=== PATIENT | male | born 1960 | race Caucasian/White ===

== ENCOUNTER 2023-05-15 18:43 | Emergency (ER) | payer BC, SELFPAY ==
[2023-05-15 18:49] VITALS: BP 152/92
[2023-05-15 20:51] VITALS: BP 135/78
[2023-05-15 20:53] LABS: Hematocrit 40.9 % (39.0-52.0); Hemoglobin 14.4 g/dL (13.0-18.0); Mean Corp Hgb Conc. 35.2 g/dL (33.0-37.0); Mean Corpuscular Hgb 31.2 pg (27.0-31.0); Mean Corpuscular Volume 88.5 fL (80.0-94.0); Mean Platelet Volume 9.7 fL (7.4-10.4); Platelet Count 324 10^3/uL (130-400); Red Blood Cell Count 4.62 10^6/uL (4.70-6.10); Red Cell Dist. Width 12.3 % (11.5-14.5); White Blood Cell Count 12.6 10^3/uL (4.8-10.8)
[2023-05-15 21:08] LABS: ALT (SGPT) 19 U/L (0-50); AST (SGOT) 20 U/L (17-59); Albumin 4.1 g/dl (3.5-5.0); Alkaline Phosphatase 92 U/L (38-126); Blood Urea Nitrogen 26 mg/dl (9-20); Calcium 9.7 mg/dl (8.4-10.2); Carbon Dioxide 26 mmol/L (22-30); Chloride 94 mmol/L (98-107); Glucose 195 mg/dl (70-99); Potassium 3.7 mmol/L (3.5-5.1); Sodium 133 mmol/L (135-145); Total Bilirubin 0.6 mg/dl (0.2-1.3); Total Protein 7.4 g/dl (6.3-8.2); eGFR > 60.00
[2023-05-15 21:09] LABS: Lipase 176 U/L (23-300)
--- NOTE | 2023-05-15 22:07 | ED.GENMED ---
Addendum entered and electronically signed by Akil Segura PA-C 05/20/23 07:16:
Urine culture demonstrates greater than 100,000 colony-forming units of E. coli ESBL. Patient was placed on Keflex which is not effective against this particular strain. Cipro is most effective. Attempted to call patient to change medication
however there was no answer. Left message to call back. Did send a prescription for Cipro to his pharmacy
Original Note:
History of Present Illness
General
Chief Complaint: Abdominal Pain
Source: patient
Exam Limitations: none
Time Seen by Provider: 05/15/23 20:01
Travel History
Have you had any contact with someone who has COVID-19?: No
Do you have any symptoms of coronavirus? Fever > 100 degrees, chills, cough, shortness of breath, sore throat, loss of taste or smell, muscle aches, or headache?: No
History of Present Illness
History of Present Illness:
62-year-old male who presents with pain in the bilateral lower abdominal region into his flank bilaterally. Patient does feel a little bit of urinary urgency and feels like the discomfort down into his scrotum. Patient states that the pain started
about 2 to 3 days ago and today seemed worse. No vomiting. No fevers. The pain initially started in his low back.
Past History
Past History
ED Past Medical History: Hypercholesterolemia and NIDDM
ED Past Surgical History: Orthopedic and Other (Hernia repair, eye surgery)
Social History
Tobacco: Non-smoker
Personal:
Living: with family
Phy Exam
Physical Exam
Physical Exam:
CONSTITUTIONAL Patient alert and oriented to person, place and time. Well-appearing. Vital signs reviewed.
HEAD atraumatic, normocephalic.
EYES eyelids normal to inspection, Pupils equally round and reactive to light, Extraocular muscles intact, Conjunctiva normal, Sclera normal.
NECK normal range of motion, Trachea midline, no jugular venous distention.
RESPIRATORY CHEST No respiratory distress noted, Chest expansion equal, Bilateral breath sounds clear.
CARDIOVASCULAR regular rate and rhythm, Heart sounds normal.
ABDOMEN obese, moderate left lower quadrant tenderness
BACK normal inspection, no obvious deformities
UPPER EXTREMITY range of motion normal, Motor strength normal, no cyanosis, no edema.
LOWER EXTREMITY range of motion normal, Motor strength normal, no cyanosis, no edema.
NEURO Speech normal, No focal motor deficits, Alfreda coma scale 15, Memory normal, Cranial Nerves intact to screening exam.
SKIN skin warm, dry, and normal in color.
Course
Orders/Labs/Results
Orders:
Orders
05/15/23 20:34
CT Abd/pelvis W Iv Cont Urgent
Comment:
Reason For Exam: LLQ abd pain
05/15/23 20:45
Complete Blood Count/No Diff Urgent
Comprehensive Metabolic Panel Urgent
Lipase Urgent
Urinalysis Urgent
Date Specimen was Collected: 05/15/23
Time Specimen was Collected: 20:20
Urine Microscopic Urgent
Date Specimen was Collected: 05/15/23
Time Specimen was Collected: 20:20
Urine Culture Urgent
JORGE Source: Urine
Specimen Description:
Obtained by: [facility]
Date Specimen was Collected: 05/15/23
Time Specimen was Collected: 20:20
05/15/23 21:48
Add On- LAB Stat
Tests Added?: urinalysis
Urinalysis Reflex To Culture Stat
Abnormal Lab Results
05/15/23
20:45
WBC 12.6 H 10^3/uL
(4.8-10.8)
RBC 4.62 L 10^6/uL
(4.70-6.10)
MCH 31.2 H pg
(27.0-31.0)
Sodium 133 L mmol/L
(135-145)
Chloride 94 L mmol/L
(98-107)
BUN 26 H mg/dl
(9-20)
Glucose 195 H mg/dl
(70-99)
Urine Occult Blood 4+ A
(Negative)
Urine Nitrite Positive A
(Negative)
Ur Leukocyte Esterase 1+ A
(Negative)
Urine RBC 3-6 A /HPF
(0-2)
Urine WBC 26-30 A /HPF
(0-5)
Urine Bacteria Many A
(Negative)
Urine Glucose 3+ A
(Negative)
Urine Albumin 1+ A
(Neg - Trace)
05/15/23 20:45
05/15/23 20:45
Vital Signs
Initial and Last Documented VS:
Initial Vital Signs
Temp Pulse Resp BP Pulse Ox
98.2 F 90 18 152/92 98
05/15/23 18:49 05/15/23 18:49 05/15/23 18:49 05/15/23 18:49 05/15/23 18:49
Last Documented Vital Signs
Temp Pulse Resp BP Pulse Ox
98.2 F 89 18 135/78 97
05/15/23 18:49 05/15/23 20:51 05/15/23 18:49 05/15/23 20:51 05/15/23 20:51
MDM/Problems Addressed
MDM/Problems Addressed:
Abdominal pain, UTI, diabetes
Acute Exacerbation and/or Progression of Chronic Illness: DM
*Radiology
Radiology exam reviewed: preliminary read by ED provider (No free air) and radiology read reviewed
*Pulse Oximetry
Patient hypoxic: no
*Critical Care Note
Total Time (30-74mins, 75-104mins- exclusive of procedures): Not Applicable
Data Reviewed
Source: patient
Further Testing Considered But Not Given:
Consider urine catheter but 300 cc in the bladder on bladder scan
ED Attending Note
-
Portions of this chart may have been created with voice recognition software.� Occasional wrong word or��sound alike� substitutions may have occurred due to the inherent limitations of voice recognition software.
Discharge Plan
Departure
Prescriptions:
No Action
cephalexin 500 MG capsule
500 mg PO QID Qty: 28 0RF
Referrals:
Dragan Denton MD [Family Provider] -
Interventions
Interventions:
*Risk Screen - Suicide Last Done: 05/15/23 20:49
*General Assessment Last Done: 05/15/23 20:49
*Neglect/Abuse Screening Last Done: 05/15/23 20:49
*ED COVID-19 Vaccine History Last Done: 05/15/23 20:49
[facility] Assessment Last Done: 05/15/23 21:05
[2023-05-15 22:31] LABS: Urine Albumin 1+ (Neg - Trace); Urine Bilirubin Negative (Negative); Urine Character Slightly Cloudy (Clear); Urine Color Yellow; Urine Glucose 3+ (Negative); Urine Ketone Negative (Negative); Urine Leukocyte 1+ (Negative); Urine Nitrite Positive (Negative); Urine Occult Blood 4+ (Negative); Urine Specific Gravity 1.015 (<1.030); Urine Urobilinogen Negative (Neg - 1+)
[2023-05-15 22:38] LABS: Urine Bacteria Many (Negative); Urine White Cell 26-30 /HPF (0-5)
[2023-05-15] MEDS: ROCEPHIN 1000 MG IV (22:48)
== END 2023-05-15 23:04 | disposition home or self-care (01) ==
LOC: EMR 18:43
PROVIDERS: EMERGENCY PHYSICIAN Emergency Medicine; FAMILY PHYSICIAN Family Medicine
DX: N39.0 Urinary tract infection, site not specified (principal); E78.00 Pure hypercholesterolemia, unspecified; E11.9 Type 2 diabetes mellitus without complications
CPT/HCPCS: 99284; 74177; 80053; 81003; 81015; 83690; 85027; 87077; 87086; 87186; Q9967

== ENCOUNTER 2024-03-07 17:30 | Emergency (ER) | payer BC, SELFPAY ==
[2024-03-07 17:36] VITALS: BP 169/101
[2024-03-07 18:17] LABS: Urine Albumin Trace (Neg - Trace); Urine Bilirubin Negative (Negative); Urine Character Clear (Clear); Urine Color Straw; Urine Glucose 3+ (Negative); Urine Ketone Negative (Negative); Urine Leukocyte Trace (Negative); Urine Nitrite Negative (Negative); Urine Occult Blood Negative (Negative); Urine Urobilinogen Negative (Neg - 1+)
[2024-03-07 18:25] LABS: Urine Red Blood Cell 0-2 /HPF (0-2); Urine White Cell 21-25 /HPF (0-5)
--- NOTE | 2024-03-07 18:27 | ED.GENMED ---
History of Present Illness
General
Chief Complaint: Male Genito-Urinary Symptoms
Source: patient
Exam Limitations: none
Time Seen by Provider: 03/07/24 17:57
History of Present Illness
History of Present Illness:
This is a 63 year old male that comes in with c/o UTI Symptoms. State that he had some testicular discomfort and left flank pain. States that this started this afternoon. States that he did vomit. Denies any fever, chills, chest pain, SOB, nausea.
diarrhea, headache, dizziness, urinary burning.
Past History
Past History
ED Past Medical History: Hypercholesterolemia, NIDDM and Other (UTI, Renal calculus)
ED Past Surgical History: Orthopedic (Left rotator cuff surgery) and Other (Hernia repair, Righteye surgery)
Social History
Tobacco: Non-smoker
Alcohol: None
Personal:
Living: with family
Review of Systems
Review of Systems
All Other Systems: ROS reviewed and negative except as documented in HPI and ROS
Constitutional: Reports no symptoms; Denies fever or chills
EENT: Reports no symptoms
Respiratory: Reports no symptoms; Denies cough or trouble breathing
Cardiac: Reports no symptoms; Denies chest pain
ABD/GI: Reports abdominal pain (Left sided) and vomiting; Denies nausea or diarrhea
: Denies dysuria, frequency or urgency
Musculoskeletal: Reports no symptoms
Skin: Reports no symptoms
Neurological: Reports no symptoms; Denies dizzy or headache
Psychiatric: Reports no symptoms
Phy Exam
General Physical Exam
General Presentation: well appearing and no apparent distress
General age: appears stated age
General Skin: warm and dry
General Habitus: normal
General Mental: alert
General Hydration: appears well hydrated
ENT Exam
ENT Exam: TM's normal, pharynx normal and neck supple
Eye Exam
Eye Exam: EOMI
Cardiovascular Exam
Cardiovascular Exam: regular rate/rhythm, no edema, no murmur and normal peripheral pulses
Pulmonary Exam
Pulmonary Exam: lungs clear, no respiratory distress, no rales, chest non tender, no crackles, no rhonchi and no wheezing
Gastrointestinal Exam
Gastrointestinal Exam: normal bowel sounds, non tender, soft, no organomegaly, no pulsatile mass, non distended and no cva tenderness
Genitourinary Exam Male
Exam Male: circumcised, normal external genitalia, normal testicular exam, no testicular swelling and no testicular tenderness
Musculoskeletal Exam
Musculoskeletal Exam: full ROM and no edema
Skin Exam
Skin Exam: normal color, warm/dry, no rash and no petechia
Psychiatric Exam
Psychiatric Exam: normal mood/affect
Course
Orders/Labs/Results
Orders:
Orders
03/07/24 18:12
Urinalysis Reflex To Culture Urgent
Date Specimen was Collected: 03/07/24
Time Specimen was Collected: 18:11
Urine Microscopic Reflex Cult Urgent
Urine Culture Urgent
JORGE Source: U
Specimen Description:
Date Specimen was Collected: 03/07/24
Time Specimen was Collected: 18:11
03/07/24 18:26
CT Abd/pel Without Iv Or Oral Urgent
Comment:
Reason For Exam: left flank pain
03/07/24 18:27
0.9% Sodium Chloride 500 ml [Nss] 500 ml IV BOLUS
03/07/24 18:41
Complete Blood Count/With Diff Urgent
Comprehensive Metabolic Panel Urgent
Abnormal Lab Results
03/07/24 03/07/24
18:12 18:41
RBC 4.35 L 10^6/uL
(4.70-6.10)
Abs Immat Gran (auto) 0.1 H 10^3/uL
(0-0.05)
Absolute Neuts (auto) 6.7 H 10^3/uL
(1.4-6.5)
Absolute Monos (auto) 0.8 H 10^3/uL
(0.1-0.6)
Lymphocytes % 15.7 L %
(20.5-51.1)
BUN 22 H mg/dl
(9-20)
Glucose 301 H mg/dl
(70-99)
Leukocyte Esterase Rfl Trace A
(Negative)
Urine WBC (Reflex) 21-25 A /HPF
(0-5)
Urine Glucose 3+ A
(Negative)
03/07/24 18:41
03/07/24 18:41
Dehydration. Hyperglycemia. Urine positive for infection.
Vital Signs
Initial and Last Documented VS:
Initial Vital Signs
Temp Pulse Resp BP Pulse Ox
98.6 F 88 16 169/101 97
03/07/24 17:36 03/07/24 17:36 03/07/24 17:36 03/07/24 17:36 03/07/24 17:36
Last Documented Vital Signs
Temp Pulse Resp BP Pulse Ox
98.6 F 88 16 169/101 97
03/07/24 17:36 03/07/24 17:36 03/07/24 17:36 03/07/24 17:36 03/07/24 17:36
MDM/Problems Addressed
Differential Diagnosis Includes:
UTI, Renal calculus
MDM/Problems Addressed:
This is a 63 year old male that comes in with c/o UTI symptoms. States that he started today with left sided testicular discomfort and this moved to the flank and back.
Will check labs. Urine and get CT scan to r/o Renal calculus. Patient refused pain medication at this time.
Back into see patient. Explained that his CT is negative for any stones but it does show cystitis. Patient does have a UTI. Will give patient IF Rocephin here and start patient on an antibiotic for the next 7 days. Patient to follow up with the
family doctor. Will also give patient the name of a Urologist. Patient to return with fever, increased or changing pain, or any other concerns.
Chronic conditions affecting care:
Renal calculus, UTI
Acute Exacerbation and/or Progression of Chronic Illness:
UTI
*Radiology
Radiology exam reviewed: radiology read reviewed (CT-Findings suggesting mild cystitis and left ureteritis/ascending urinary tract infection. )
*Pulse Oximetry
Patient hypoxic: no
*EKG
Interpreted by ED Provider?: NA
Rate: EKG- N/A
*Lockstitch Topstitcher Interpretation
Rate: Lockstitch Topstitcher- N/A
*Critical Care Note
Total Time (30-74mins, 75-104mins- exclusive of procedures): Not Applicable
ED Attending Note
-
Portions of this chart may have been created with voice recognition software.� Occasional wrong word or��sound alike� substitutions may have occurred due to the inherent limitations of voice recognition software.
Discharge Plan
Departure
Patient Disposition: Home (Routine Discharge)
Date of Disposition: 03/07/24
Time of Disposition: 19:15
Patient with high blood pressure during this ER visit?: Yes
Condition: Good
Covid-19: Not Applicable
Discharge Problem:
Urinary tract infection, Cystitis
Instructions: Bladder Pain Syndrome (Interstitial Cystitis) (DC), Urinary Tract Infection, Adult ED, BLOOD PRESSURE
Prescriptions:
New
cefdinir 300 mg capsule
300 mg PO BID Qty: 14 0RF
No Action
cephalexin 500 MG capsule
500 mg PO QID Qty: 28 0RF
levofloxacin 500 mg tablet
500 mg PO DAILY 14 Days Qty: 14 0RF
ciprofloxacin HCl [Cipro] 500 mg tablet
500 mg PO BID Qty: 14 0RF
Referrals:
Jenny Haas CRNP [Family Provider] -
Alan Hoang MD [Active] - Follow up in 5-7 days
Activity Restrictions/Additional Instructions:
As discussed, your blood work shows that you are dehydrated and your do have a urinary tract infection. Your CT is negative for any stones but shows that there is Cystitis. This is bladder wall thickening. Please try and stay away form Caffeine as
this is very irritating to the bladder lining. You have been given IV antibiotic here and a prescription has been sent to your Pharmacy. Please take as directed for the next 7 days. Follow up with the Urologist for further evaluation and repeat
urine to make sure the infection is gone. Please increase your water intake to 8-8oz glasses daily. IF YOU HAVE FEVER, INCREASED OR CHANGING PAIN, OR YOU HAVE ANY OTHER CONCERNS PLEASE RETURN TO THE EMERGENCY ROOM.
Interventions
Interventions:
*Risk Screen - Suicide Last Done: 03/07/24 17:36
*General Assessment Last Done: 03/07/24 18:27
*Neglect/Abuse Screening Last Done: 03/07/24 17:36
*ED COVID-19 Vaccine History Last Done: 03/07/24 18:27
ED-Male Genitourinary Assessment Last Done: 03/07/24 18:27
Discharge Date and Time
Print Language: [id number]
[2024-03-07 18:42] VITALS: BMI 40.0
[2024-03-07] MEDS: NSS 500 IV (18:52)
[2024-03-07 18:55] LABS: % Basophils 0.7 % (0-2); % Eosinophils 2.1 % (0-6); % Immature Granulocytes 0.5 % (0-0.5); % Lymphocytes 15.7 % (20.5-51.1); % Monocytes 8.7 % (1.7-9.3); % Neutrophils 72.3 % (42.2-75.2); Absolute Basophils 0.1 10^3/uL (0-0.2); Absolute Eosinophils 0.2 10^3/uL (0-0.7); Absolute Immature Granulocytes 0.1 10^3/uL (0-0.05); Absolute Lymphocytes 1.4 10^3/uL (1.2-3.4); Absolute Monocytes 0.8 10^3/uL (0.1-0.6); Absolute Neutrophils 6.7 10^3/uL (1.4-6.5); Hematocrit 40.6 % (39.0-52.0); Hemoglobin 13.5 g/dL (13.0-18.0); Mean Corp Hgb Conc. 33.3 g/dL (33.0-37.0); Mean Corpuscular Volume 93.3 fL (80.0-94.0); Mean Platelet Volume 10.2 fL (7.4-10.4); Nucleated Red Blood Cells % 0 % (-); Platelet Count 290 10^3/uL (130-400); Red Blood Cell Count 4.35 10^6/uL (4.70-6.10); Red Cell Dist. Width 12.1 % (11.5-14.5); White Blood Cell Count 9.2 10^3/uL (4.8-10.8)
[2024-03-07 19:03] LABS: ALT (SGPT) 18 U/L (0-50); AST (SGOT) 26 U/L (17-59); Albumin 4.4 g/dl (3.5-5.0); Alkaline Phosphatase 69 U/L (38-126); Blood Urea Nitrogen 22 mg/dl (9-20); Calcium 9.3 mg/dl (8.4-10.2); Carbon Dioxide 22 mmol/L (22-30); Chloride 101 mmol/L (98-107); Estimated Creatinine Clearance 118 ml/min; Glucose 301 mg/dl (70-99); Potassium 4.6 mmol/L (3.5-5.1); Sodium 139 mmol/L (135-145); Total Bilirubin 0.4 mg/dl (0.2-1.3); Total Protein 7.5 g/dl (6.3-8.2); eGFR > 60.00
[2024-03-07] MEDS: ZOFRAN 4 MG IV (19:19)
[2024-03-07] MEDS: ROCEPHIN 1000 MG IV (19:20)
[2024-03-07 19:28] VITALS: BP 134/60
== END 2024-03-07 19:36 | disposition home or self-care (01) ==
LOC: EMR 17:30
PROVIDERS: Clinical Nurse Specialist Family Health; EMERGENCY PHYSICIAN Emergency Medicine; FAMILY PHYSICIAN Nurse Practitioner Family
DX: N30.90 Cystitis, unspecified without hematuria (principal); E78.00 Pure hypercholesterolemia, unspecified; E11.65 Type 2 diabetes mellitus with hyperglycemia; E86.0 Dehydration; Z87.442 Personal history of urinary calculi
CPT/HCPCS: 96374; 96375; 96361; 99284; 74176; 80053; 81003; 81015; 85025; 87077; 87086